=== PATIENT | male | born 1965 | race Caucasian/White ===

== ENCOUNTER 2023-05-14 19:50 | Emergency (ER) | payer OTHER ==
[2023-05-14] VITALS (14 sets, daily range): BP systolic 105–126; BP diastolic 62–78
== END 2023-05-15 00:01 | disposition short-term general hospital (02) | DRG 536 ==
LOC: ED 19:50
DX: S72.101A Unspecified trochanteric fracture of right femur, initial encounter for closed fracture (principal); E78.00 Pure hypercholesterolemia, unspecified; Z21 Asymptomatic human immunodeficiency virus [HIV] infection status; W06.XXXA Fall from bed, initial encounter; Y92.143 Cell of prison as the place of occurrence of the external cause

== ENCOUNTER 2024-04-08 10:16 | Inpatient (IN) | payer OTHER ==
[~2024-04-08] VITALS: Ht 152.4 cm; Wt 76.0 kg
[2024-04-08] VITALS (32 sets, daily range): BP systolic 92–120; BP diastolic 46–68
--- NOTE | 2024-04-08 10:16 | NUR ---
PT T O ER ROM 15 VIA EMS. [facility] [place] OFFICER AT BEDSIDE OF PATIENT.
[2024-04-08] MEDS ORDERED: SODIUM CHLORIDE 0.9% 1,000 ML IV ONE (10:25)
[2024-04-08] MEDS ORDERED: PIPERACILLIN Sodium-Tazobactam 3.375 GM in SODIUM CHLORIDE 0.9% 100 ML IV ONE (10:25)
[2024-04-08 10:55] LABS: ALBUMIN 4.1 g/dL (3.2-5.0); ALKALINE PHOSPHATASE 98 u/l (38-126); BUN 28 mg/dL (9-20); BUN/CREATININE RATIO 40 (12-20 (CALC)); CALCULATED LDLCHOLESTEROL 95 mg/dL (62-129 (CALC)); CARBON DIOXIDE 25 mmol/l (22-30); CREATININE 0.7 mg/dL (0.7-1.3); ESTIMATED GFR 107 ML/MIN (>=90 (CALC)); HDL CHOLESTEROL 45 mg/dL (39.0-59.0); POTASSIUM 3.9 mmol/l (3.5-5.1); SGOT/AST 28 u/l (17-59); SODIUM 139 mmol/l (137-146); TOTAL CHOLESTEROL 180 mg/dl (0-199); TOTAL PROTEIN 7.5 g/dL (6.3-8.2); TOTAL TRIGLYCERIDES 205 mg/dl (0-149); VLDL CHOLESTROL 41 mg/dl (8-62 (CALC))
[2024-04-08 10:58] LABS: BASO% 0.1 % (0-3); EOS% 0.1 % (0-8); HEMATOCRIT 40.5 % (39.0-50.0); HEMOGLOBIN 13.5 g/dl (14.0-18.0); IMMATURE GRANULOCYTES 0.5 % (0.0-5.0); LYMPH% 10.4 % (15-41); MEAN CORPUSCULAR HGB 35.3 pG CALC (26.0-32.0); MEAN CORPUSCULAR HGB CONC 33.3 g/dL CAL (32.0-36.0); MONO% 4.7 % (2-13); NEUT# 11.31 thou/uL (1.82-7.42); NEUT% 84.2 % (42-76); RED BLOOD COUNT 3.82 mill/uL (4.70-6.10); RED CELL DISTRI WIDTH 11.7 % (11.5-15.5)
[2024-04-08 11:00] LABS: ANION GAP 9 (6-22 (CALC)); BILIRUBIN, TOTAL 0.3 mg/dL (0.2-1.3); CHLORIDE 109 mmol/l (95-108)
[2024-04-08 11:03] LABS: INTERNATIONAL NORMALIZED RATIO 1.1 RATIO (0.7-1.3)
[2024-04-08 11:10] LABS: PROTHROMBIN TIME 10.3 SECONDS (9.0-12.5)
--- NOTE | 2024-04-08 11:30 | NUR ---
PT IS IN ROOM GUARDS AT BESIDE PT IS NOW MORE ALERT THAN WHEN HE ARRIVED. PT VITALS WNL NO COMPLAINTS AT THIS TIME PT HAS CALL LIGHT INREACH
--- NOTE | 2024-04-08 12:30 | NUR ---
PT IS IN ROOM GUARDS AT [facility] PT HAS NO COMPLAINTS AT THIS TIME AWAITING RESUTS. CALL LIGHT IN REACH
[2024-04-08 13:13] LABS: URINE BILIRUBIN - DIPSTICK Negative (NEGATIVE); URINE BLOOD DIPSTICK Moderate (NEGATIVE); URINE GLUCOSE - DIPSTICK Negative (NEGATIVE); URINE KETONE Negative (NEGATIVE); URINE LEUK ESTERASE Negative (NEGATIVE); URINE NITRITE - DIPSTICK Negative (Negative); URINE PROTEIN - DIPSTICK Negative (NEG-TRACE); URINE SPECIFIC GRAVITY <=1.005; URINE UROBILINOGEN - DIPSTICK 0.2 E.U./dL (0.2)
[2024-04-08 13:14] LABS: URINE COLOR Yellow
--- NOTE | 2024-04-08 13:22 | NUR ---
PT IS STILL HYPOTHERMIC AT 96.7 PROVIDER IS AWARE PT IS PUT UNDER BEAR HUGGER AT THIS TIME PT OTHER VITALS ARE STABLE NO COMPLAINT AT THIS TIME GUARDS AT BEDSIDE.
[2024-04-08] MEDS ORDERED: ACETAMINOPHEN 325 MG/TAB PO PRN (14:00)
[2024-04-08] MEDS ORDERED: SODIUM CHLORIDE 0.9% 1,000 ML IV PRN (14:00)
[2024-04-08] MEDS ORDERED: MAGNESIUM HYDROXIDE 30 ML UDC PO PRN (14:00)
--- NOTE | 2024-04-08 16:10 | NUR ---
pt report called up to icu pt understands admission pt vitals wnl pt did use urinal
[2024-04-08] MEDS ORDERED: LISINOPRIL5 MG PO (16:13)
[2024-04-08] MEDS ORDERED: ASPIRIN ENTERIC81 MG PO (16:14)
[2024-04-08] MEDS ORDERED: CARBAMAZEPIN200 MG PO (16:14)
[2024-04-08] MEDS ORDERED: MELATONIN3 M1 PO (16:15)
[2024-04-08] MEDS ORDERED: PRAVASTATIN80 MG PO (16:16)
[2024-04-08] MEDS ORDERED: ALLERGY RE50 MCG/ACT NAB (16:17)
[2024-04-08] MEDS ORDERED: LAMIVUDINE300 MG PO (16:19)
[2024-04-08] MEDS ORDERED: NORVIR100 M1 PO (16:20)
[2024-04-08] MEDS ORDERED: PREZISTA800 MG PO (16:20)
[2024-04-08] MEDS ORDERED: VIREAD300 MG PO (16:23)
[2024-04-08] MEDS ORDERED: TAMSULOSIN0.4 MG PO (16:23)
[2024-04-08] MEDS ORDERED: PEPCID20 MG PO (16:24)
--- NOTE | 2024-04-08 16:45 | NUR ---
PATIENT ARRIVED TO ICU VIA STRETCHER FROM EMERGENCY DEPARTMENT. PATIENT IS ALERT AND ORIENTED, ANSWERING ALL QUESTIONS APPROPRIATELY. ORIENTED PATIENT TO THE ROOM AND ANSWERED ALL QUESTIONS.
--- NOTE | 2024-04-08 16:55 | NUR ---
pt taken up to icu rm 8 at this time via stretcher guards at bedside with pt pt vitals wnl
--- NOTE | 2024-04-08 17:30 | NUR ---
PATIENT SLEEPING O2 SAT MAINTAINING 87-89%. PLACED PATIENT ON 2L NC O2 SATS ANTONIA TO 95%. PATIENT'S BREATHING IS UNLABORED AND HE DENIES DIFFICULTY BREATHING.
[2024-04-08] MEDS ORDERED: PIPERACILLIN Sodium-Tazobactam 4.5 GM in SODIUM CHLORIDE 0.9% 100 ML IV SCH (18:00)
--- NOTE | 2024-04-08 20:00 | NUR ---
PT ASSESSED 2 GUARDS AT [facility]ISONERS BEDSIDE PT SHAKLED TO BED WITH LOWER LEG HANDCUFS PT VOIDED , NO DISTRESS, PT REPORTS BEING COMFORTABLE AND WANTING TO SLEEP AFEBRILE ALL NEEDS MET WATER AT BEDSIDE TABLE WELL CALL LIGHT PT ALOX4, AFEBRILE . BLANKET GIVEN ALL MONITORS ON BED IN LOW POSITIOE.
[2024-04-08] MEDS ORDERED: ENOXAPARIN SODIUM 40 MG/0.4 ML SYR SC SCH (21:00)
--- NOTE | 2024-04-08 22:00 | NUR ---
PT ROUNDED ON NO CHANGES. NO DISTRESS. ALL NEEDS MET ON MONIOTS ALL ALARMS ON, 2 GUARDS AT BEDSIDE .
[2024-04-09] VITALS (18 sets, daily range): BP systolic 101–155; BP diastolic 59–82
--- NOTE | 2024-04-09 | NUR ---
pt rounded on , alert , comfortable. abx hung fluids going , 2 guards at bedside. no changes all needs met. all moniotrs on , all alarms on .
--- NOTE | 2024-04-09 02:00 | NUR ---
pt rounded on urine eplied in urinal for 600, iVF new bag hung going at 150cc/hr, o2 on resting comfortbaly , 2 guards at bedside, call guerrero within reach all needs met on cardiac monior, pulse ox, all alarms on.
--- NOTE | 2024-04-09 04:00 | NUR ---
pt rounded on , ivf going NS at 150, 2 guards at bedside , no change to assessment
[2024-04-09 04:54] LABS: BASO% 0.1 % (0-3); EOS% 0.3 % (0-8); HEMATOCRIT 37.3 % (39.0-50.0); HEMOGLOBIN 12.6 g/dl (14.0-18.0); IMMATURE GRANULOCYTES 0.1 % (0.0-5.0); LYMPH% 32.3 % (15-41); MEAN CELL VOLUME 108.7 fL CALC (80.0-100.0); MEAN CORPUSCULAR HGB 36.7 pG CALC (26.0-32.0); MEAN CORPUSCULAR HGB CONC 33.8 g/dL CAL (32.0-36.0); MONO% 8.1 % (2-13); NEUT# 4.49 thou/uL (1.82-7.42); NEUT% 59.1 % (42-76); RED BLOOD COUNT 3.43 mill/uL (4.70-6.10); RED CELL DISTRI WIDTH 11.9 % (11.5-15.5)
[2024-04-09 05:07] LABS: ALBUMIN 3.6 g/dL (3.2-5.0); BILIRUBIN, TOTAL 0.2 mg/dL (0.2-1.3); CREATININE 0.9 mg/dL (0.7-1.3); MAGNESIUM 2.2 mg/dL (1.6-2.3); POTASSIUM 3.9 mmol/l (3.5-5.1); TOTAL PROTEIN 6.3 g/dL (6.3-8.2)
--- NOTE | 2024-04-09 05:26 | NUR ---
LAB TOOK SPUTUM CULTURE TO LAB
--- NOTE | 2024-04-09 06:12 | NUR ---
pt rounded on abx hung fluids marco a pt sleeping 2 guards at bedside , all needs met abnd safety measures intact.
[2024-04-09] MEDS ORDERED: PATIENT' OWN MED 1 EA DOSE PO PRN ×4 (07:55→08:00)
--- NOTE | 2024-04-09 08:00 | NUR ---
REPORT RECEIVED FROM NIGHT RN. PT IS A/O. LUNGS CLEAR; PT IS ON 2LNC. NON-PRODUCTIVE COUGH. HEART SOUNDS S1S2; PT IS NSR ON MONITOR. BOWEL SOUNDS ACTIVE. PULSES STRONG ALL EXTREMETIES. SKIN W/D/I. AFEBRILE. PT HANDCUFFED TO BED WITH 2 GUARDS AT BEDSIDE. PT GIVEN BREAKFAST TRAY. SITTING IN BED TO EAT. VSS.
[2024-04-09] MEDS ORDERED: TAMSULOSIN HCL 0.4 MG CAP PO SCH (09:00)
[2024-04-09] MEDS ORDERED: CARBAMAZEPINE 200 MG TAB PO SCH (09:00)
[2024-04-09] MEDS ORDERED: ASPIRIN EC 81 MG/TAB PO SCH (09:00)
[2024-04-09] MEDS ORDERED: FAMOTIDINE 20 MG/TAB PO SCH (09:00)
[2024-04-09] MEDS ORDERED: LORazepam 2 MG/ML IV PRN (09:35)
--- NOTE | 2024-04-09 09:36 | NUR ---
DR. VAUGHN AT BEDSIDE TO ASSESS PT.
--- NOTE | 2024-04-09 11:35 | NUR ---
PT TAKEN TO MRI BY WHEELCHAIR ON 2LNC AND MONITOR. 2 GUARDS PRESENT.
--- NOTE | 2024-04-09 12:09 | NUR ---
PT BACK FROM MRI; TOLERATED WELL. REPOSITIONED IN BED AND GIVEN LUNCH TRAY.
--- NOTE | 2024-04-09 14:00 | NUR ---
PT ASSISTED UP TO USE RESTROOM. PT HAD SMALL BM. BACK IN BED. VSS. GUARDS AT BEDSIDE.
--- NOTE | 2024-04-09 17:24 | NUR ---
NO CHANGES TO PT STATUS. PT ASSISTED TO GET UP TO RESTROOM. PT ATE DINNER. DENIES ANY OTHER NEEDS AT THIS TIME. VSS. GUARDS AT BEDSIDE.
--- NOTE | 2024-04-09 20:00 | NUR ---
assessed pt , no pain , Respirations easy unlabored caough present. 2 guards at bedside pt hancuffed by legto bed. all needs met , water at bedside IVF NA gong at 150cc/hr. call guerrero within reach. all safety measures in plce. call guerrero within reach .
--- NOTE | 2024-04-09 22:00 | NUR ---
pt resting comfortably all needs met on monitor randal guerrero within reach .
[2024-04-10] VITALS: BP 125/76
--- NOTE | 2024-04-10 | NUR ---
pt assessed all needs met all safety measures in place assessment unchanged. 2 guards at bedside , pt secured to the bed via foot and handcuff. IVF running at 150 abx hung. afebrile , pt sleeping all needs met . call guerrero within reach , water at bedside .
--- NOTE | 2024-04-10 01:29 | NUR ---
pt rounded on assessment unchanged, call guerrero within reach pt resting comfortbaly
[2024-04-10 02:00] VITALS: BP 120/79
--- NOTE | 2024-04-10 02:03 | NUR ---
pt rounded on rsting comfortably , 2 guards at bedside call guerrero wtihin reach no change in assessment .
--- NOTE | 2024-04-10 02:54 | NUR ---
pt was walked to the bathroom for BM , no issues ambulating , titrated off oxygen 94% RA. emptied urinal for 650. back to bed 2 guards at [facility] eall needs met. all safety measures in place
[2024-04-10 04:00] VITALS: BP 125/77
--- NOTE | 2024-04-10 04:51 | NUR ---
[facility] RN called and was updated to pt status and vitals. pt does appear to have sleep apnea and sats drop to 84 good waveform without oxygen , o2 2L was applied back on to pt. when pt awake sats 96 without o2 on . all needs met . 2 guards at bedside call guerrero within reach .
[2024-04-10 05:31] LABS: BASO% 0.1 % (0-3); EOS% 0.3 % (0-8); HEMATOCRIT 36.3 % (39.0-50.0); HEMOGLOBIN 12.3 g/dl (14.0-18.0); IMMATURE GRANULOCYTES 0.1 % (0.0-5.0); MEAN CELL VOLUME 107.4 fL CALC (80.0-100.0); MEAN CORPUSCULAR HGB 36.4 pG CALC (26.0-32.0); MEAN CORPUSCULAR HGB CONC 33.9 g/dL CAL (32.0-36.0); MONO% 7.7 % (2-13); NEUT# 6.23 thou/uL (1.82-7.42); NEUT% 68.8 % (42-76); RED BLOOD COUNT 3.38 mill/uL (4.70-6.10); RED CELL DISTRI WIDTH 11.7 % (11.5-15.5)
[2024-04-10 05:35] LABS: ALBUMIN 3.6 g/dL (3.2-5.0); CREATININE 0.9 mg/dL (0.7-1.3); TOTAL PROTEIN 6.4 g/dL (6.3-8.2)
[2024-04-10 05:41] LABS: BILIRUBIN, TOTAL 0.3 mg/dL (0.2-1.3)
[2024-04-10 06:01] VITALS: BP 108/54
--- NOTE | 2024-04-10 08:00 | NUR ---
PATEINT ARRIVED FROM ICU VIA WHEEL CHAIR; ON ROOM AIR; BREATHING UNLABORED AND EVEN; GUARDS WITH PATEINTP; NO S/S OF DISTRESS AT THIS [place]; DENIED ANY PAIN;DENIED NEEDING ANYTHING; DENIED ANY N/D/V AT TIS TIME; PATIENT COMPLAINT OF HAVING A COUGH; MEDICATION AND PLAN OF CARE REVIEWED; CALL LIGHT WITHIN REACH,VERBALIZED [id number] ON HOW TO USE, PERSONAL ITEMS WITHIN REACH, BED INLWOEST POSTION
[2024-04-10 09:02] VITALS: BP 139/77
[2024-04-10 09:16] VITALS: BP 139/77
--- NOTE | 2024-04-10 12:30 | NUR ---
PATIENT A/O X3; ROOM AIR; BREATHING UNLABORED AND EVEN; NO S/S OF DISTRESS AT THIS TME; DENIED ANY PAIN; DENIED NEEDING ANYTHING; DENIED ANY N/D/V AT THIS TIME; DENIED NEEDING ANYTHING; THREE IV SITE CLEAN AND INTACT, SALINE LOCKED; IV SITE IN LAC RUNNING WITH ZOSYN WITH NO ISSUES; MEDIATION REVIEWED; CALL LIGHT WITHIN REACH,VERBALIZED UNDERTANDING ON HOW TO USE, PERSONAL ITEMS WITHIN REACH, BED IN LOWEST POSTION; GUARDS IN ROOM
[2024-04-10] MEDS ORDERED: AMOX/K CLAV875 M1 PO ×2 (13:49→15:09)
--- NOTE | 2024-04-10 15:47 | NUR ---
IV site discontinued, cath intact. No edema , no redness, voices no discomfort. Discharge instructions given. Patient verbalizes understanding of same. Discharged in stable condition via [facility] to [facility] with [facility]Other. All belongings sent with pt.
== END 2024-04-10 15:47 | disposition designated cancer center or children's hospital (05) | DRG 93 ==
LOC: ED 10:16 → ED-I 13:06 → ED 13:35 → ICU 13:36 → MS2 04-10 08:00
PROVIDERS: Family Medicine; Nurse Practitioner Family; Student in an Organized Health Care Education/Training Program; ADMIT Internal Medicine; ATTEND Internal Medicine
DX: G92.8 Other toxic encephalopathy (principal); J01.00 Acute maxillary sinusitis, unspecified; E11.9 Type 2 diabetes mellitus without complications; R68.0 Hypothermia, not associated with low environmental temperature; D73.89 Other diseases of spleen; F39 Unspecified mood [affective] disorder; Z21 Asymptomatic human immunodeficiency virus [HIV] infection status; E78.00 Pure hypercholesterolemia, unspecified; Z79.899 Other long term (current) drug therapy; Z20.822 Contact with and (suspected) exposure to COVID-19
CPT/HCPCS: J1650; Q9967